=== PATIENT | female | born 1935 | race Hispanic/Latino ===

== ENCOUNTER 2017-11-21 06:07 | Inpatient (IN) | payer OTHER ==
[2017-11-18 15:00] LABS: BASOPHILS % (AUTO) 0.8 % (0.0-5.0); EOSINOPHILS % (AUTO) 2.4 % (0.0-8.0); HEMATOCRIT 37.4 % (36-48); LYMPHOCYTES % (AUTO) 34.1 % (21.0-51.0); MEAN CORPUSCULAR HEMOGLOBIN 32.2 pg (27.0-33.0); MEAN CORPUSCULAR HGB CONC 34.6 g/dL (32.0-36.0); MEAN CORPUSCULAR VOLUME 92.9 fL (79-99); MONOCYTES % (AUTO) 8.2 % (3.0-13.0); NEUTROPHILS % (AUTO) 54.5 % (40.0-77.0); PLATELET COUNT (AUTO) 241 K/uL (130-400); RED BLOOD CELL COUNT(AUTO) 4.03 MIL/uL (4.00-5.50); RED CELL DISTRIBUTION WIDTH 13.4 % (11.0-15.5)
[2017-11-18 15:02] LABS: APPEARANCE,URINE Clear (CLEAR); BILIRUBIN,URINE Negative (NEGATIVE); COLOR,URINE Yellow (YELLOW); GLUCOSE, URINE (UA) >=1000 mg/dL (NEGATIVE); KETONES,URINE Negative (NEGATIVE); LEUKOCYTE ESTERASE ,URINE Negative (NEGATIVE); NITRATE,URINE Negative (NEGATIVE); OCCULT BLOOD,URINE Negative (NEGATIVE); PROTEIN,URINE Negative (NEGATIVE)
[2017-11-18 15:07] VITALS: BP 124/57
[2017-11-18 15:11] LABS: BACTERIA,URINE None Seen /HPF (None Seen); RBC,URINE None Seen /HPF (0-1); WBC,URINE None Seen /HPF (0-1)
[2017-11-18 15:12] LABS: CREATININE 1.1 mg/dL (0.5-1.5); POTASSIUM 4.6 mmol/L (3.5-5.1)
[2017-11-18 15:20] LABS: INR 1.01 (0.85-1.15); PROTHROMBIN TIME 10.6 SEC (9.6-11.6)
[~2017-11-21] VITALS: Ht 151.1 cm; Wt 58.6 kg
[2017-11-21] VITALS (20 sets, daily range): BP systolic 72–179; BP diastolic 35–91
[~2017-11-21 06:07] MED LIST: ASPI-555 PO; ATOR40TA71 PO; CLOP75TA14 PO; ESCI10TA54 PO; EZET10TA26 PO; FOLI1TAB15 PO; GLIP10TA9 PO; LEVO75 PO; LISI10TA7 PO; METO25TA6 PO; NITR0.4T50 SL; PRAM0.5T3 PO; SITA100T12 PO; SODIUM CHLORIDE 0.9% 500ML 500 ML IV SCH
[2017-11-21] MEDS ORDERED: LISI-617 PO (10:34)
[2017-11-21] MEDS ORDERED: ISOVUE-370 50ML VIAL IV ONE (10:43)
[2017-11-21] MEDS ORDERED: HEPARIN SODIUM 1000UNIT/ML 10ML VIAL ONE ×3 (10:43→15:54)
[2017-11-21] MEDS ORDERED: LIDOCAINE HCL-MPF 2% 5ML VIAL ONE ×2 (10:43→10:44)
[2017-11-21] MEDS ORDERED: IOPAMIDOL-370 100 ML VIAL IV ONE (10:43)
[2017-11-21] MEDS ORDERED: HYDRALAZINE HCL 20 MG/ML VIAL ONE (11:26)
[2017-11-21] MEDS ORDERED: NITROGLYCERIN 4.1 GM SPRAY TL ONE (11:42)
[2017-11-21] MEDS ORDERED: LISINOPRIL 5 MG TABLET PO SCH (12:00)
[2017-11-21] MEDS ORDERED: NITROGLYCERIN 0.4 MG SL TAB SL PRN (12:00)
[2017-11-21] MEDS ORDERED: DEXTROSE 50%-WATER 50 ML DISP.SYRIN IV PRN ×2 (12:00→20:15)
[2017-11-21] MEDS ORDERED: GLUCAGON 1MG KIT 1 MG ML IM PRN ×2 (12:00→20:15)
[2017-11-21] MEDS ORDERED: CEFUROXIME 1.5GM+NS 100ML 100 ML IV SCH (12:45)
[2017-11-21] MEDS ORDERED: NITROGLYCERIN 0.4 MG SL TAB SL ONE (13:06)
[2017-11-21] MEDS ORDERED: NITROGLYCERIN 1GM/1 INCH PACKET TD ONE (13:10)
[2017-11-21 13:39] LABS: BASOPHILS % (AUTO) 0.7 % (0.0-5.0); EOSINOPHILS % (AUTO) 1.1 % (0.0-8.0); HEMATOCRIT 38.3 % (36-48); MEAN CORPUSCULAR HEMOGLOBIN 31.1 pg (27.0-33.0); MEAN CORPUSCULAR HGB CONC 34.2 g/dL (32.0-36.0); MONOCYTES % (AUTO) 5.8 % (3.0-13.0); NEUTROPHILS % (AUTO) 55.4 % (40.0-77.0); PLATELET COUNT (AUTO) 236 K/uL (130-400); RED BLOOD CELL COUNT(AUTO) 4.21 MIL/uL (4.00-5.50); RED CELL DISTRIBUTION WIDTH 13.4 % (11.0-15.5); WHITE BLOOD COUNT (AUTO) 10.5 K/uL (4.8-10.8)
[2017-11-21 13:44] LABS: HEMOGLOBIN A1C 12.2 % (4.0-6.0)
[2017-11-21] MEDS ORDERED: NITROGLYCERIN 50 MG/D5% WATER 1 BOT ONE (13:44)
[2017-11-21 13:47] LABS: POTASSIUM 5.1 mmol/L (3.5-5.1)
[2017-11-21 13:48] LABS: INR 1.01 (0.85-1.15); PROTHROMBIN TIME 10.6 SEC (9.6-11.6)
[2017-11-21 14:00] LABS: ALBUMIN 3.5 g/dL (3.5-5.0); BILIRUBIN,TOTAL 0.6 mg/dL (0.2-1.0); TOTAL PROTEIN, SERUM 7.3 g/dL (6.0-8.3)
[2017-11-21] MEDS ORDERED: PRAMIPEXOLE DI-HCL 0.25 MG TABLET PO SCH (14:00)
[2017-11-21] MEDS ORDERED: INSULIN HUMULIN R 100 UNIT/ML 3ML ONE (14:09)
[2017-11-21] MEDS ORDERED: BACITRACIN 50,000 UNIT VIAL ONE (14:44)
[2017-11-21] MEDS ORDERED: PAPAVERINE HCL 30 MG/ML 2ML VIAL ONE (14:44)
[2017-11-21] MEDS ORDERED: OCTYL 2-CYANOACRYLATE 1 EACH TP ONE (14:44)
[2017-11-21] MEDS ORDERED: HEPARIN SODIUM 10000 UNIT/ML 1ML VIAL IJ ONE (14:44)
[2017-11-21] MEDS ORDERED: AMIODARONE HCL 900MG/18ML IV ONE ×2 (14:50→15:54)
[2017-11-21] MEDS ORDERED: THROMBIN-JMI 5000 UNIT/VIAL TP ONE (15:50)
[2017-11-21] MEDS ORDERED: GLYCOPYRROLATE 0.2 MG/ML 5 ML VIAL ONE (15:53)
[2017-11-21] MEDS ORDERED: ESMOLOL HCL 10 MG/ML 10 ML VIAL ONE (15:53)
[2017-11-21] MEDS ORDERED: PROTAMINE SULFATE 10 MG/ML 25ML VIAL IV ONE (15:53)
[2017-11-21] MEDS ORDERED: ROCURONIUM BROMIDE 10MG/1ML 5ML VL ONE (15:54)
[2017-11-21] MEDS ORDERED: EPINEPHRINE 1 MG/ML AMPULE ONE ×3 (15:54→22:44)
[2017-11-21] MEDS ORDERED: MILRINONE-D5W 20 MG/100 ML 0 ML IV ONE (15:54)
[2017-11-21] MEDS ORDERED: LIDOCAINE PF 2% 5ML ABBOJECT ONE (15:54)
[2017-11-21] MEDS ORDERED: AMINOCAPROIC ACID 250 MG/ML 20 ML VIAL IV ONE (15:54)
[2017-11-21] MEDS ORDERED: PROPOFOL 10 MG/ML 20ML VIAL IV ONE (15:54)
[2017-11-21] MEDS ORDERED: MIDAZOLAM HCL 1 MG/ML 5ML VIAL ONE (15:54)
[2017-11-21] MEDS ORDERED: NOREPINEPHRINE BITARTRATE 1 MG/1 ML ML IV ONE (15:54)
[2017-11-21] MEDS ORDERED: CEFUROXIME SODIUM 1.5 GM VIAL ONE ×2 (16:00→18:06)
[2017-11-21] MEDS ORDERED: KETAMINE HCL 100 MG/ML 5ML VIAL IJ ONE (16:02)
[2017-11-21 16:23] LABS: ABG BASE EXCESS -4.6 mmol/L (-2.0-3.0); ABG HCO3 19.8 mmol/L (21.0-28.0); ABG PCO2 34 mmHg (32-45)
[2017-11-21] MEDS ORDERED: INSULIN HUMULIN R 100 UNIT/ML 3ML SQ SCH (16:30)
[2017-11-21] MEDS ORDERED: CEFUROXIME SODIUM 1.5 GM VIAL IVP SCH (16:45)
[2017-11-21] MEDS ORDERED: SODIUM BICARB 50MEQ 50ML VIAL ONE ×2 (16:59→21:09)
[2017-11-21 19:25] LABS: ABG BASE EXCESS -4.2 mmol/L (-2.0-3.0); ABG HCO3 21.8 mmol/L (21.0-28.0); ABG OXYGEN SATURATION 99.3 % (95.0-99.0); ABG PCO2 43 mmHg (32-45)
[2017-11-21] MEDS ORDERED: SODIUM CHLORIDE 0.9% 500ML 500 ML IV SCH (20:04)
[2017-11-21] MEDS ORDERED: SODIUM BICARB 8.4% 50ML SYRINGE ONE ×5 (20:10→20:58)
[2017-11-21] MEDS ORDERED: SODIUM CHLORIDE 0.9% 250 ML IV PRN (20:15)
[2017-11-21] MEDS ORDERED: SODIUM CHLORIDE 0.9% 10 ML VIAL IVP PRN (20:15)
[2017-11-21] MEDS ORDERED: ALBUMIN (HUMAN) 5% 250 ML IV PRN (20:15)
[2017-11-21] MEDS ORDERED: NITROGLYCERIN 50 MG/D5% WATER 250 BOT IV SCH (20:15)
[2017-11-21] MEDS ORDERED: PROPOFOL 1000 MG/100 ML 100 ML IV PRN (20:15)
[2017-11-21] MEDS ORDERED: ONDANSETRON HCL 4 MG/2 ML VIAL IV PRN (20:15)
[2017-11-21] MEDS ORDERED: EPINEPHRINE 2 MG in SODIUM CHLORIDE 0.9% 250 ML IV PRN (20:15)
[2017-11-21] MEDS ORDERED: AMINOCAPROIC ACID 15,000 MG in SODIUM CHLORIDE 0.9% 250 ML IV SCH (20:15)
[2017-11-21] MEDS ORDERED: NICARDIPINE HCL 100 MG in SODIUM CHLORIDE 0.9% 100 ML IV PRN (20:15)
[2017-11-21] MEDS ORDERED: MORPHINE SULFATE 4 MG/1ML SYG IV PRN (20:15)
[2017-11-21] MEDS ORDERED: SODIUM CHLORIDE 0.9% 1000ML 1,000 ML IV SCH (20:15)
[2017-11-21] MEDS ORDERED: POTASSIUM PHOS 15 mMOL+NS250ML 250 ML IV PRN (20:15)
[2017-11-21] MEDS ORDERED: SODIUM BICARB 8.4% 50ML SYRINGE IV PRN (20:15)
[2017-11-21] MEDS ORDERED: MORPHINE SULFATE 2 MG/ML 1ML SYG IV PRN (20:15)
[2017-11-21] MEDS ORDERED: ACETAMINOPHEN 650 MG SUPPOSITORY RC PRN (20:15)
[2017-11-21] MEDS ORDERED: CALCIUM GLUCONATE 1 GM in SODIUM CHLORIDE 0.9% 50 ML IV PRN (20:15)
[2017-11-21 20:24] LABS: ABG BASE EXCESS -1.2 mmol/L (-2.0-3.0); ABG HCO3 22.2 mmol/L (21.0-28.0); ABG OXYGEN SATURATION 98.7 % (95.0-99.0); ABG PCO2 32 mmHg (32-45)
[2017-11-21] MEDS ORDERED: ATROPINE SULFATE 0.1 MG/ML 10 ML SYG IVP ONE (20:39)
[2017-11-21 20:54] LABS: ABG HCO3 16.7 mmol/L (21.0-28.0); ABG OXYGEN SATURATION 98.3 % (95.0-99.0); ABG PCO2 35 mmHg (32-45)
[2017-11-21] MEDS ORDERED: METOPROLOL TARTRATE 25 MG TAB PO SCH (21:00)
[2017-11-21] MEDS ORDERED: ATORVASTATIN CALCIUM 40 MG TABLET PO SCH (21:00)
[2017-11-21] MEDS ORDERED: PROTAMINE SULFATE 10 MG/ML 5 ML VIAL ONE (21:00)
[2017-11-21] MEDS ORDERED: GLIPIZIDE 5 MG TABLET PO SCH (21:00)
[2017-11-21] MEDS ORDERED: FENTANYL CITRATE PF 50 MCG/1 ML 2ML VIAL ONE ×3 (21:26)
[2017-11-21 21:47] LABS: ABG HCO3 26.2 mmol/L (21.0-28.0); ABG OXYGEN SATURATION 98.3 % (95.0-99.0); ABG PCO2 39 mmHg (32-45)
[2017-11-21] MEDS: INSULIN REGULAR, HUMAN 3ML 100 UNIT in SODIUM CHLORIDE 0.9% 99 ML IV SCH ×2 (23:12)
[2017-11-21 23:22] LABS: ABG BASE EXCESS -0.5 mmol/L (-2.0-3.0); ABG HCO3 23.6 mmol/L (21.0-28.0); ABG PCO2 38 mmHg (32-45)
[2017-11-21] MEDS: NOREPINEPHRINE 4MG/NS 250ML 250 ML IV PRN (23:27)
[2017-11-21 23:42] LABS: HEMATOCRIT 30.4 % (36-48); MEAN CORPUSCULAR HEMOGLOBIN 30.7 pg (27.0-33.0); MEAN CORPUSCULAR HGB CONC 34.4 g/dL (32.0-36.0); MEAN CORPUSCULAR VOLUME 89.4 fL (79-99); PLATELET COUNT (AUTO) 98 K/uL (130-400); RED CELL DISTRIBUTION WIDTH 13.9 % (11.0-15.5); WHITE BLOOD COUNT (AUTO) 12.7 K/uL (4.8-10.8)
[2017-11-21 23:45] LABS: CREATININE 1.1 mg/dL (0.5-1.5); MAGNESIUM 1.6 mg/dL (1.80-2.40); PHOSPHORUS 4.6 mg/dL (2.5-4.9)
[2017-11-21 23:47] LABS: POTASSIUM 2.9 mmol/L (3.5-5.1)
[2017-11-21] MEDS: MAGNESIUM 2GM PREMIX 50ML 50 ML IV PRN (23:52)
[2017-11-21] MEDS: POTASSIUM CHLORIDE 20MEQ/100ML 100 ML IV PRN (23:52)
[2017-11-22] VITALS (27 sets, daily range): BP systolic 83–150; BP diastolic 30–56
[2017-11-22 00:44] LABS: INR 1.25 (0.85-1.15); PARTIAL THROMBOPLASTIN TIME 28.7 SEC (26.3-35.5); PROTHROMBIN TIME 13.1 SEC (9.6-11.6)
[2017-11-22] MEDS ORDERED: ALBUMIN (HUMAN) 5% 250 ML IV ONE (00:44)
[2017-11-22 02:28] LABS: ABG BASE EXCESS -1.2 mmol/L (-2.0-3.0); ABG HCO3 23.3 mmol/L (21.0-28.0); ABG OXYGEN SATURATION 96.5 % (95.0-99.0); ABG PCO2 38 mmHg (32-45)
[2017-11-22] MEDS: POTASSIUM CHLORIDE 20MEQ/100ML 100 ML IV PRN ×2 (02:31→05:22)
[2017-11-22] MEDS: NOREPINEPHRINE 4MG/NS 250ML 250 ML IV PRN (02:34)
[2017-11-22] MEDS ORDERED: CEFUROXIME 1.5GM+NS 100ML 100 ML IV SCH (04:15)
[2017-11-22] MEDS: CEFUROXIME SODIUM 1.5 GM VIAL IVP SCH ×2 (04:39→17:04)
[2017-11-22 04:51] LABS: HEMATOCRIT 24.1 % (36-48); MEAN CORPUSCULAR HEMOGLOBIN 32.4 pg (27.0-33.0); MEAN CORPUSCULAR HGB CONC 36.2 g/dL (32.0-36.0); MEAN CORPUSCULAR VOLUME 89.5 fL (79-99); PLATELET COUNT (AUTO) 79 K/uL (130-400); RED BLOOD CELL COUNT(AUTO) 2.69 MIL/uL (4.00-5.50); RED CELL DISTRIBUTION WIDTH 14.4 % (11.0-15.5); WHITE BLOOD COUNT (AUTO) 8.6 K/uL (4.8-10.8)
[2017-11-22 04:58] LABS: ABG BASE EXCESS 1.4 mmol/L (-2.0-3.0); ABG HCO3 25.2 mmol/L (21.0-28.0); ABG OXYGEN SATURATION 97.3 % (95.0-99.0); ABG PCO2 37 mmHg (32-45)
[2017-11-22 05:03] LABS: CREATININE 1.2 mg/dL (0.5-1.5); MAGNESIUM 2.4 mg/dL (1.80-2.40); PHOSPHORUS 2.1 mg/dL (2.5-4.9); POTASSIUM 3.5 mmol/L (3.5-5.1)
[2017-11-22] MEDS: INSULIN REGULAR, HUMAN 3ML 100 UNIT in SODIUM CHLORIDE 0.9% 99 ML IV SCH ×2 (06:18)
[2017-11-22] MEDS ORDERED: LEVOTHYROXINE 75 MCG TABLET PO SCH (06:30)
[2017-11-22] MEDS ORDERED: PHARMACY COMMUNICATION MISC SCH (08:00)
[2017-11-22 08:16] LABS: ABG BASE EXCESS 3.4 mmol/L (-2.0-3.0); ABG OXYGEN SATURATION 98.3 % (95.0-99.0); ABG PCO2 38 mmHg (32-45)
[2017-11-22 08:24] LABS: MAGNESIUM 2.3 mg/dL (1.80-2.40); POTASSIUM 4.2 mmol/L (3.5-5.1)
[2017-11-22 08:33] LABS: INR 1.13 (0.85-1.15); PARTIAL THROMBOPLASTIN TIME 34.1 SEC (26.3-35.5); PROTHROMBIN TIME 11.8 SEC (9.6-11.6)
[2017-11-22] MEDS: ESCITALOPRAM 10 MG PO SCH (09:00)
[2017-11-22] MEDS ORDERED: LISINOPRIL 10 MG TABLET PO SCH (09:00)
[2017-11-22] MEDS ORDERED: FOLIC ACID 1 MG TABLET PO SCH (09:00)
[2017-11-22] MEDS ORDERED: LINAGLIPTIN 5 MG TABLET PO SCH (09:00)
[2017-11-22] MEDS ORDERED: ASPIRIN 81 MG EC TAB PO SCH (09:00)
[2017-11-22] MEDS ORDERED: EZETIMIBE 10 MG TAB PO SCH (09:00)
[2017-11-22] MEDS ORDERED: CITALOPRAM 20 MG TABLET PO SCH (09:00)
[2017-11-22] MEDS: PANTOPRAZOLE SODIUM 40 MG TABLET.DR PO SCH (10:32)
[2017-11-22] MEDS ORDERED: ALBUMIN (HUMAN) 5% 250 ML IV SCH (15:15)
[2017-11-23] VITALS (26 sets, daily range): BP systolic 73–121; BP diastolic 34–67
[2017-11-23] MEDS ORDERED: SODIUM CHLORIDE 0.9% 1000ML 1,000 ML IV ONE (03:03)
[2017-11-23] MEDS: CEFUROXIME SODIUM 1.5 GM VIAL IVP SCH (05:30)
[2017-11-23] MEDS: LEVOTHYROXINE 75 MCG TABLET PO SCH (05:31)
[2017-11-23 06:22] LABS: HEMATOCRIT 25.7 % (36-48); MEAN CORPUSCULAR HEMOGLOBIN 28.6 pg (27.0-33.0); MEAN CORPUSCULAR HGB CONC 33.5 g/dL (32.0-36.0); MEAN CORPUSCULAR VOLUME 85.3 fL (79-99); PLATELET COUNT (AUTO) 80 K/uL (130-400); RED BLOOD CELL COUNT(AUTO) 3.02 MIL/uL (4.00-5.50); RED CELL DISTRIBUTION WIDTH 17.9 % (11.0-15.5)
[2017-11-23 06:38] LABS: MAGNESIUM 1.7 mg/dL (1.80-2.40); POTASSIUM 3.5 mmol/L (3.5-5.1)
[2017-11-23 07:49] LABS: BAND NEUTROPHILS % (MANUAL) 2 % (0-2); LYMPHOCYTES % (MANUAL) 18 % (22-44); MAN.DIFF COMMENT-IMPRESSION MANUAL DIFFERENTIAL; MONOCYTES % (MANUAL) 12 % (2-9); PLATELET MORPHOLOGY COMMENT DECREASED; SEGMENTED NEUTROPHILS % 68 % (40-70)
[2017-11-23] MEDS: PANTOPRAZOLE SODIUM 40 MG TABLET.DR PO SCH (08:16)
[2017-11-23] MEDS: FERROUS SULFATE 325 MG TABLET.DR PO SCH (08:16)
[2017-11-23] MEDS: MAGNESIUM 2GM PREMIX 50ML 50 ML IV PRN (08:16)
[2017-11-23] MEDS: POTASSIUM CHLORIDE 20MEQ/100ML 100 ML IV PRN (08:17)
[2017-11-23] MEDS: ESCITALOPRAM 10 MG PO SCH (08:17)
[2017-11-23] MEDS: FUROSEMIDE 20 MG TABLET PO SCH ×2 (11:28→21:39)
[2017-11-23] MEDS: ASPIRIN 81MG TAB.CHEW PO SCH (11:28)
[2017-11-23] MEDS: PRAMIPEXOLE DI-HCL 0.25 MG TABLET PO SCH ×3 (11:28→21:39)
[2017-11-23] MEDS: INSULIN HUMULIN R 100 UNIT/ML 3ML SQ SCH ×3 (11:31→21:41)
[2017-11-23] MEDS: ATORVASTATIN CALCIUM 40 MG TABLET PO SCH (21:39)
[2017-11-23] MEDS: HYDROCODONE/ACETAMINOPHEN 5/325 MG TAB PO PRN (23:07)
[2017-11-24] VITALS (24 sets, daily range): BP systolic 89–134; BP diastolic 45–103
[2017-11-24 04:30] LABS: HEMATOCRIT 28.3 % (36-48); MEAN CORPUSCULAR HEMOGLOBIN 30.4 pg (27.0-33.0); MEAN CORPUSCULAR HGB CONC 35.5 g/dL (32.0-36.0); MEAN CORPUSCULAR VOLUME 85.6 fL (79-99); NUCLEATED RED BLOOD CELLS 0.2 % (0.0-0.19); PLATELET COUNT (AUTO) 81 K/uL (130-400); RED BLOOD CELL COUNT(AUTO) 3.31 MIL/uL (4.00-5.50); RED CELL DISTRIBUTION WIDTH 17.8 % (11.0-15.5); WHITE BLOOD COUNT (AUTO) 12.6 K/uL (4.8-10.8)
[2017-11-24 04:41] LABS: POTASSIUM 3.3 mmol/L (3.5-5.1)
[2017-11-24] MEDS: POTASSIUM CHLORIDE 20MEQ/100ML 100 ML IV PRN ×2 (04:45→06:10)
[2017-11-24] MEDS: LEVOTHYROXINE 75 MCG TABLET PO SCH (05:58)
[2017-11-24] MEDS: INSULIN HUMULIN R 100 UNIT/ML 3ML SQ SCH ×5 (06:25→21:00)
[2017-11-24] MEDS: PRAMIPEXOLE DI-HCL 0.25 MG TABLET PO SCH ×2 (08:53→21:12)
[2017-11-24] MEDS: ACETAMINOPHEN 325 MG TAB PO PRN ×2 (08:53→17:43)
[2017-11-24] MEDS: FERROUS SULFATE 325 MG TABLET.DR PO SCH (08:54)
[2017-11-24] MEDS: ASPIRIN 81MG TAB.CHEW PO SCH (08:55)
[2017-11-24] MEDS: LINAGLIPTIN 5 MG TABLET PO SCH (08:55)
[2017-11-24] MEDS: PANTOPRAZOLE SODIUM 40 MG TABLET.DR PO SCH (08:55)
[2017-11-24] MEDS: FUROSEMIDE 20 MG TABLET PO SCH ×2 (08:55→21:09)
[2017-11-24] MEDS: ESCITALOPRAM 10 MG PO SCH (09:00)
[2017-11-24] MEDS ORDERED: FUROSEMIDE 20 MG TABLET PO SCH (09:00)
[2017-11-24] MEDS ORDERED: PRAMIPEXOLE DI-HCL 0.25 MG TABLET PO SCH (09:00)
[2017-11-24] MEDS: ATORVASTATIN CALCIUM 40 MG TABLET PO SCH (21:09)
[2017-11-24] MEDS: HYDROCODONE/ACETAMINOPHEN 5/325 MG TAB PO PRN ×2 (21:12→21:53)
[2017-11-25] VITALS (17 sets, daily range): BP systolic 82–130; BP diastolic 41–82
[2017-11-25 04:37] LABS: HEMATOCRIT 26.5 % (36-48); MEAN CORPUSCULAR HEMOGLOBIN 29.4 pg (27.0-33.0); MEAN CORPUSCULAR HGB CONC 34.2 g/dL (32.0-36.0); PLATELET COUNT (AUTO) 78 K/uL (130-400); RED BLOOD CELL COUNT(AUTO) 3.08 MIL/uL (4.00-5.50); RED CELL DISTRIBUTION WIDTH 17.5 % (11.0-15.5); WHITE BLOOD COUNT (AUTO) 9.6 K/uL (4.8-10.8)
[2017-11-25 04:51] LABS: CREATININE 0.9 mg/dL (0.5-1.5); POTASSIUM 3.9 mmol/L (3.5-5.1)
[2017-11-25] MEDS: LEVOTHYROXINE 75 MCG TABLET PO SCH (05:28)
[2017-11-25] MEDS: HYDROCODONE/ACETAMINOPHEN 5/325 MG TAB PO PRN (05:30)
[2017-11-25] MEDS: POTASSIUM CHLORIDE 20MEQ/100ML 100 ML IV PRN (05:31)
[2017-11-25] MEDS: INSULIN HUMULIN R 100 UNIT/ML 3ML SQ SCH ×4 (07:04→21:00)
[2017-11-25] MEDS: ASPIRIN 81MG TAB.CHEW PO SCH (08:28)
[2017-11-25] MEDS: FUROSEMIDE 20 MG TABLET PO SCH (08:28)
[2017-11-25] MEDS: PANTOPRAZOLE SODIUM 40 MG TABLET.DR PO SCH (08:28)
[2017-11-25] MEDS: LINAGLIPTIN 5 MG TABLET PO SCH (08:28)
[2017-11-25] MEDS: FERROUS SULFATE 325 MG TABLET.DR PO SCH (08:28)
[2017-11-25] MEDS: PRAMIPEXOLE DI-HCL 0.25 MG TABLET PO SCH ×2 (08:28→21:01)
[2017-11-25] MEDS: ESCITALOPRAM 10 MG PO SCH (08:33)
[2017-11-25] MEDS: ATORVASTATIN CALCIUM 40 MG TABLET PO SCH (21:01)
[2017-11-26 04:32] LABS: BASOPHILS % (AUTO) 0.2 % (0.0-5.0); EOSINOPHILS % (AUTO) 4.4 % (0.0-8.0); LYMPHOCYTES % (AUTO) 11.1 % (21.0-51.0); MEAN CORPUSCULAR HEMOGLOBIN 31.1 pg (27.0-33.0); MEAN CORPUSCULAR HGB CONC 35.6 g/dL (32.0-36.0); MEAN CORPUSCULAR VOLUME 87.2 fL (79-99); MONOCYTES % (AUTO) 6.1 % (3.0-13.0); NEUTROPHILS % (AUTO) 78.2 % (40.0-77.0); NUCLEATED RED BLOOD CELLS 0.1 % (0.0-0.19); PLATELET COUNT (AUTO) 102 K/uL (130-400); RED BLOOD CELL COUNT(AUTO) 2.99 MIL/uL (4.00-5.50); RED CELL DISTRIBUTION WIDTH 16.9 % (11.0-15.5); WHITE BLOOD COUNT (AUTO) 9.8 K/uL (4.8-10.8)
[2017-11-26 04:56] LABS: CREATININE 0.8 mg/dL (0.5-1.5); POTASSIUM 3.9 mmol/L (3.5-5.1)
[2017-11-26] MEDS: INSULIN HUMULIN R 100 UNIT/ML 3ML SQ SCH ×4 (05:50→21:19)
[2017-11-26] MEDS: LEVOTHYROXINE 75 MCG TABLET PO SCH (06:10)
[2017-11-26] MEDS: HYDROCODONE/ACETAMINOPHEN 5/325 MG TAB PO PRN (06:10)
[2017-11-26 07:08] VITALS: BP 102/48
[2017-11-26] MEDS: PRAMIPEXOLE DI-HCL 0.25 MG TABLET PO SCH ×2 (08:39→21:24)
[2017-11-26] MEDS: LINAGLIPTIN 5 MG TABLET PO SCH (08:39)
[2017-11-26] MEDS: PANTOPRAZOLE SODIUM 40 MG TABLET.DR PO SCH (08:39)
[2017-11-26] MEDS: FUROSEMIDE 20 MG TABLET PO SCH (08:39)
[2017-11-26] MEDS: ESCITALOPRAM 10 MG PO SCH (08:40)
[2017-11-26] MEDS: ASPIRIN 81MG TAB.CHEW PO SCH (08:40)
[2017-11-26] MEDS: FERROUS SULFATE 325 MG TABLET.DR PO SCH (08:40)
[2017-11-26 11:06] VITALS: BP 99/49
[2017-11-26 19:39] VITALS: BP 123/58
[2017-11-26] MEDS: ATORVASTATIN CALCIUM 40 MG TABLET PO SCH (21:24)
[2017-11-27] VITALS (7 sets, daily range): BP systolic 101–121; BP diastolic 46–55
[2017-11-27] MEDS: HYDROCODONE/ACETAMINOPHEN 5/325 MG TAB PO PRN ×3 (00:07→16:16)
[2017-11-27] MEDS: INSULIN HUMULIN R 100 UNIT/ML 3ML SQ SCH ×4 (05:56→21:00)
[2017-11-27] MEDS: LEVOTHYROXINE 75 MCG TABLET PO SCH (06:30)
[2017-11-27] MEDS: PRAMIPEXOLE DI-HCL 0.25 MG TABLET PO SCH ×2 (08:13→22:01)
[2017-11-27] MEDS: FERROUS SULFATE 325 MG TABLET.DR PO SCH (08:13)
[2017-11-27] MEDS: PANTOPRAZOLE SODIUM 40 MG TABLET.DR PO SCH (08:13)
[2017-11-27] MEDS: LINAGLIPTIN 5 MG TABLET PO SCH (08:13)
[2017-11-27] MEDS: FUROSEMIDE 20 MG TABLET PO SCH (08:13)
[2017-11-27] MEDS: ASPIRIN 81MG TAB.CHEW PO SCH (08:13)
[2017-11-27] MEDS: ESCITALOPRAM 10 MG PO SCH (08:14)
[2017-11-27] MEDS: IBUPROFEN 400 MG TABLET PO SCH ×2 (16:45→23:29)
[2017-11-27] MEDS: TRAMADOL HCL 50 MG TABLET PO SCH ×2 (16:45→23:28)
[2017-11-27] MEDS: ATORVASTATIN CALCIUM 40 MG TABLET PO SCH (22:02)
[2017-11-28 03:41] VITALS: BP 113/56
[2017-11-28 04:27] LABS: CREATININE 0.8 mg/dL (0.5-1.5); POTASSIUM 3.7 mmol/L (3.5-5.1)
[2017-11-28] MEDS: IBUPROFEN 400 MG TABLET PO SCH ×3 (05:50→16:58)
[2017-11-28] MEDS: TRAMADOL HCL 50 MG TABLET PO SCH ×3 (05:51→16:58)
[2017-11-28] MEDS ORDERED: POTASSIUM CHLORIDE 20 MEQ ERTAB PO PRN (06:30)
[2017-11-28] MEDS ORDERED: POTASSIUM CHLORIDE 10% ELIXIR 20 MEQ/15 ML UDCUP PO PRN (06:30)
[2017-11-28] MEDS ORDERED: POTASSIUM CHLORIDE 10 MEQ/TAB.SA PO ONE ×2 (06:33→06:34)
[2017-11-28] MEDS: INSULIN HUMULIN R 100 UNIT/ML 3ML SQ SCH ×3 (06:43→16:27)
[2017-11-28 07:00] VITALS: BP 109/51
[2017-11-28] MEDS: LEVOTHYROXINE 75 MCG TABLET PO SCH (07:05)
[2017-11-28] MEDS: ESCITALOPRAM 10 MG PO SCH (09:00)
[2017-11-28] MEDS ORDERED: METOPROLOL TARTRATE 25 MG TAB PO SCH (09:00)
[2017-11-28] MEDS: LINAGLIPTIN 5 MG TABLET PO SCH (09:30)
[2017-11-28] MEDS: PANTOPRAZOLE SODIUM 40 MG TABLET.DR PO SCH (09:30)
[2017-11-28] MEDS: ASPIRIN 81MG TAB.CHEW PO SCH (09:30)
[2017-11-28] MEDS: FERROUS SULFATE 325 MG TABLET.DR PO SCH (09:30)
[2017-11-28] MEDS: PRAMIPEXOLE DI-HCL 0.25 MG TABLET PO SCH (09:30)
[2017-11-28] MEDS: FUROSEMIDE 20 MG TABLET PO SCH (09:32)
[2017-11-28 11:00] VITALS: BP 94/45
[2017-11-28 16:00] VITALS: BP 97/57
== END 2017-11-28 19:37 | DRG 233 ==
LOC: DAH 06:07 → 2CV 06:08 → 2BH 11-22 18:46 → 2AH 11-26 13:42
PROVIDERS: ADMIT Thoracic Surgery (Cardiothoracic Vascular Surgery); ATTEND Thoracic Surgery (Cardiothoracic Vascular Surgery)
PROC: B2111ZZ Fluoroscopy of Multiple Coronary Arteries using Low Osmolar Contrast (ICD-10-PCS; 2017-11-21)
PROC: 06BQ4ZZ Excision of Left Saphenous Vein, Percutaneous Endoscopic Approach (ICD-10-PCS; 2017-11-21)
PROC: 5A1221Z Performance of Cardiac Output, Continuous (ICD-10-PCS; 2017-11-21)
PROC: 0BH17EZ Insertion of Endotracheal Airway into Trachea, Via Natural or Artificial Opening (ICD-10-PCS; 2017-11-21)
PROC: B2151ZZ Fluoroscopy of Left Heart using Low Osmolar Contrast (ICD-10-PCS; 2017-11-21)
PROC: 30233L1 Transfusion of Nonautologous Fresh Plasma into Peripheral Vein, Percutaneous Approach (ICD-10-PCS; 2017-11-21)
PROC: 30233N1 Transfusion of Nonautologous Red Blood Cells into Peripheral Vein, Percutaneous Approach (ICD-10-PCS; 2017-11-21)
PROC: 30233R1 Transfusion of Nonautologous Platelets into Peripheral Vein, Percutaneous Approach (ICD-10-PCS; 2017-11-21)
PROC: 30233K1 Transfusion of Nonautologous Frozen Plasma into Peripheral Vein, Percutaneous Approach (ICD-10-PCS; 2017-11-21)
PROC: 5A1935Z Respiratory Ventilation, Less than 24 Consecutive Hours (ICD-10-PCS; 2017-11-21)
PROC: 021209W Bypass Coronary Artery, Three Arteries from Aorta with Autologous Venous Tissue, Open Approach (ICD-10-PCS; principal; 2017-11-21 15:00)
PROC: 02100Z9 Bypass Coronary Artery, One Artery from Left Internal Mammary, Open Approach (ICD-10-PCS; 2017-11-21 15:00)
PROC: 4A023N7 Measurement of Cardiac Sampling and Pressure, Left Heart, Percutaneous Approach (ICD-10-PCS; 2017-11-21 15:00)
DX: I25.119 Atherosclerotic heart disease of native coronary artery with unspecified angina pectoris (principal); I50.33 Acute on chronic diastolic (congestive) heart failure; D69.6 Thrombocytopenia, unspecified; E11.9 Type 2 diabetes mellitus without complications; E87.1 Hypo-osmolality and hyponatremia; E03.9 Hypothyroidism, unspecified; E78.5 Hyperlipidemia, unspecified; F32.9 Major depressive disorder, single episode, unspecified; G25.81 Restless legs syndrome; I10 Essential (primary) hypertension; I34.0 Nonrheumatic mitral (valve) insufficiency; M06.9 Rheumatoid arthritis, unspecified; M19.90 Unspecified osteoarthritis, unspecified site; Z79.4 Long term (current) use of insulin; Z79.82 Long term (current) use of aspirin; Z79.899 Other long term (current) drug therapy; Z95.5 Presence of coronary angioplasty implant and graft; Z88.2 Allergy status to sulfonamides; Z88.8 Allergy status to other drugs, medicaments and biological substances; Z83.3 Family history of diabetes mellitus; Z82.49 Family history of ischemic heart disease and other diseases of the circulatory system; Z82.0 Family history of epilepsy and other diseases of the nervous system
CPT/HCPCS: 36415; 36430; 36600; 71045; 80048; 80053; 80061; 81001; 82330; 82435; 82803; 82947; 82948; 83036; 83605; 83735; 84100; 84132; 84295; 85018; 85025; 85027; 85347; 85610; 85730; 86850; 86900; 86901; 86922; 86927; 93005; 93458; 93880; 94002; 94010; 94150; 97039; A4218; A4357; A4606; A7048; C1760; C1894; J0171; J0282; J0360; J0461; J0697; J1644; J1815; J2001; J2250; J2260; J2270; J2440; J2704; J2720; J3010; J3475; J3480; J3490; J7030; J7040; J7120; P9016; P9017; P9045; Q9967

== ENCOUNTER → 2024-03-29 | Outpatient (CLI) | payer MEDICARE ==
[~2024-03-29] MED LIST changes: -ASPI-555 PO; +ASPI-556 PO; -CLOP75TA14 PO; +ESCI-8 PO; -ESCI10TA54 PO; -EZET10TA26 PO; +EZET10TA48 PO; +IOHEXOL 350 MG/ML 100ML INFUS..BTL IV ONE; +LISI10TA24 PO; -LISI10TA7 PO; +LISI5TAB21 PO; -SODIUM CHLORIDE 0.9% 500ML 500 ML IV SCH
== END | disposition home or self-care (01) ==
LOC: RAH 11:19
PROVIDERS: ATTEND Internal Medicine Cardiovascular Disease
DX: I25.10 Atherosclerotic heart disease of native coronary artery without angina pectoris (principal); R07.9 Chest pain, unspecified
CPT/HCPCS: 75574; Q9967

== ENCOUNTER → 2024-04-04 | Outpatient (CLI) | payer MEDICARE ==
[~2024-04-04] MED LIST changes: -IOHEXOL 350 MG/ML 100ML INFUS..BTL IV ONE
== END | disposition home or self-care (01) ==
LOC: SHCH 15:15
PROVIDERS: ATTEND Internal Medicine Cardiovascular Disease
DX: I08.3 Combined rheumatic disorders of mitral, aortic and tricuspid valves (principal); I25.10 Atherosclerotic heart disease of native coronary artery without angina pectoris
CPT/HCPCS: 93306

== ENCOUNTER → 2024-05-01 | Outpatient (CLI) | payer MEDICARE | END | disposition home or self-care (01) | LOC: SHCH 13:21 | PROVIDERS: ATTEND Internal Medicine Cardiovascular Disease | DX: I70.203 Unspecified atherosclerosis of native arteries of extremities, bilateral legs (principal) | CPT/HCPCS: 93925 ==

== ENCOUNTER → 2024-05-21 | Outpatient (CLI) | payer MEDICARE ==
[2024-05-21] MEDS: REGADENOSON 0.4 MG/5 ML PF SYG IVP ONE (14:50)
== END | disposition home or self-care (01) ==
LOC: SHCH 08:32
PROVIDERS: ATTEND Internal Medicine Cardiovascular Disease
DX: I25.10 Atherosclerotic heart disease of native coronary artery without angina pectoris (principal)
CPT/HCPCS: 78452; 93017; J2785; A9500 ×2

== ENCOUNTER 2024-07-02 08:39 | Day surgery (SDC) | payer MEDICARE ==
[2024-06-29 10:11] LABS: BASOPHILS # (AUTO) 0.07 K/uL (0.00-0.20); EOSINOPHILS # (AUTO) 0.25 K/uL (0.00-0.70); EOSINOPHILS % (AUTO) 3.5 % (0.0-8.0); HEMATOCRIT 38.2 % (36-48); IMMATURE GRANULOCYTE ABSOLUTE 0.01 K/uL (0-1); LYMPHOCYTES # (AUTO) 2.8 K/uL (1.0-4.8); LYMPHOCYTES % (AUTO) 40.2 % (21.0-51.0); MEAN CORPUSCULAR HEMOGLOBIN 32.1 pg (27.0-33.0); MEAN CORPUSCULAR VOLUME 97.2 fL (79-99); MONOCYTES # (AUTO) 0.5 K/uL (0.1-1.0); MONOCYTES % (AUTO) 6.9 % (3.0-13.0); NEUTROPHILS # (AUTO) 3.4 K/uL (1.8-7.7); NEUTROPHILS % (AUTO) 48.3 % (40.0-77.0); PLATELET COUNT (AUTO) 180 K/uL (130-400); RED BLOOD CELL COUNT(AUTO) 3.93 MIL/uL (4.00-5.50); RED CELL DISTRIBUTION WIDTH 12.4 % (11.0-15.5); WHITE BLOOD COUNT (AUTO) 7.1 K/uL (4.8-10.8)
[2024-06-29 10:14] VITALS: BP 121/65; PULSE 64; RESP 18; TEMP 97.2
[2024-06-29 10:20] LABS: CREATININE 1.8 mg/dL (0.5-1.0); POTASSIUM 5.6 mmol/L (3.5-5.1)
[2024-06-29 10:24] LABS: INR 1.06 (0.85-1.15); PROTHROMBIN TIME 11.4 SEC (9.6-11.6)
[2024-06-29 10:25] LABS: PARTIAL THROMBOPLASTIN TIME 25.9 SEC (26.3-35.5)
[2024-06-29 10:37] LABS: B-TYPE NATRIURETIC PEPTIDE 88 pg/mL (0-100)
[2024-06-29 11:46] LABS: APPEARANCE,URINE CLOUDY (CLEAR); BILIRUBIN,URINE NEGATIVE (NEGATIVE); COLOR,URINE YELLOW (YELLOW); GLUCOSE, URINE (UA) NEGATIVE (NEGATIVE); KETONES,URINE NEGATIVE (NEGATIVE); LEUKOCYTE ESTERASE ,URINE 500 Leu/uL (NEGATIVE); NITRATE,URINE NEGATIVE (NEGATIVE); OCCULT BLOOD,URINE NEGATIVE (NEGATIVE); PH,URINE 5.5 (5.0-8.0); PROTEIN,URINE 20 mg/dL (NEGATIVE)
[2024-06-29 11:58] LABS: ADD UA MICROSCOPIC YES
[2024-06-29 12:12] LABS: BACTERIA,URINE RARE /HPF (None Seen); HYALINE CASTS, URINE 26-50 /LPF (0-1 /LPF); MUCUS,URINE RARE LPF (None Seen); SQUAMOUS EPITHELIAL CELL,UR MANY /HPF (0-2); TRANSITIONAL EPI CELLS,URINE RARE /HPF (None Seen)
[2024-07-02] VITALS (12 sets, daily range): BP systolic 101–197; BP diastolic 44–86; PULSE 58–73; RESP 12–19; TEMP 97.2–98
[~2024-07-02] VITALS: Ht 149.9 cm; Wt 56.7 kg
[~2024-07-02 08:39] MED LIST changes: -ASPI-556 PO; +ATOR-2 PO; -ATOR40TA71 PO; +CETI10TA57 PO; +CLOP75TA32 PO; +DONE-51 PO; -EZET10TA48 PO; +FERR-72 PO; -FOLI1TAB15 PO; +GABA300C PO; -GLIP10TA9 PO; +ICOS1CAP PO; +INSU200I4 SQ; +LEVO112T4 PO; -LEVO75 PO; -LISI10TA24 PO; +LISI2.5T13 PO; -LISI5TAB21 PO; -METO25TA6 PO; -NITR0.4T50 SL; +OLMESARTAN PO; +OZEMPIC SQ; -PRAM0.5T3 PO; -SITA100T12 PO
[2024-07-02] MEDS: 0.9%NACL 1000ML 1,000 ML IV ONE (09:29)
[2024-07-02 09:47] LABS: CREATININE 1.3 mg/dL (0.5-1.0); POTASSIUM 4.4 mmol/L (3.5-5.1)
[2024-07-02] MEDS ORDERED: HEParin-NS 1,000 UNIT/500 ML 1,000 ML IV ONE (09:53)
[2024-07-02] MEDS ORDERED: LIDOCAINE HCL 400MG/20ML VIAL ONE (09:53)
[2024-07-02] MEDS ORDERED: HEParin 10,000 UNIT/10ML (1,000 UNIT/ML) VIAL ONE (09:53)
[2024-07-02] MEDS ORDERED: IOHEXOL 350 MG/ML 100ML INFUS..BTL IV ONE ×2 (09:53→12:33)
[2024-07-02] MEDS ORDERED: SODIUM BICARB 50MEQ 50ML VIAL 50 ML ONE (09:53)
[2024-07-02] MEDS ORDERED: NITROGLYCERIN 50MG VIAL ONE (09:53)
[2024-07-02] MEDS ORDERED: MEPERIDINE-PF 25 MG/ML SYG ONE (11:12)
[2024-07-02] MEDS ORDERED: MIDAZOLAM HCL 1 MG/ML 2ML VIAL ONE (11:13)
[2024-07-02] MEDS ORDERED: ATROPINE 1MG SYG IVP ONE (11:16)
[2024-07-02] MEDS ORDERED: HEParin-NS 1,000 UNIT/500 ML 500 ML IV ONE (11:55)
[2024-07-02] MEDS ORDERED: IOHEXOL-350 50ML VIAL IV ONE (12:33)
[2024-07-02] MEDS ORDERED: ASPIRIN 325MG EC TAB PO ONE (13:13)
[2024-07-02] MEDS ORDERED: DEXTROSE 50%-WATER 50 ML DISP.SYRIN IV PRN (13:30)
[2024-07-02] MEDS: 0.9%NACL 1000ML 1,000 ML IV SCH (13:30)
[2024-07-02] MEDS ORDERED: INSULIN humuLIN R 100 UNIT/ML 3ML SQ SCH (16:30)
== END 2024-07-02 19:00 | disposition home or self-care (01) ==
LOC: DAH 08:39
PROVIDERS: ATTEND Internal Medicine Cardiovascular Disease
DX: I25.708 Atherosclerosis of coronary artery bypass graft(s), unspecified, with other forms of angina pectoris (principal); R94.39 Abnormal result of other cardiovascular function study; I10 Essential (primary) hypertension; E11.9 Type 2 diabetes mellitus without complications; E03.9 Hypothyroidism, unspecified; Z79.01 Long term (current) use of anticoagulants; Z95.5 Presence of coronary angioplasty implant and graft; Z96.652 Presence of left artificial knee joint; Z79.899 Other long term (current) drug therapy
CPT/HCPCS: 80048 ×2; 83880; 85025; 85610; 85730; 87086; 81001; 36415 ×2; 71045; 93005; 93459; 85347 ×2; 82948 ×2; C9600; C1769 ×2; C1887 ×4; C1894; C1725 ×2; C1874 ×3; C1760; Q9965 ×2; J3490 ×3; J7030; J0461; J1644 ×3; J2250; J2175; Q9967; A4215; A7002; A4335; A4222; A4221; A4663; A4216; A4606; C9601; A4223 ×3; A4554; 96360; 96361; 99156; 99157; C9607